=== PATIENT | female | born 1950 | race African-American/Black ===

== ENCOUNTER 2021-07-15 14:25 | Emergency (ER) | payer MEDICARE ==
[2021-07-15 15:04] LABS: #Eosinphils 0.2 thou/uL (0.0-0.7); #Lymphocytes 2.7 thou/uL (1.20-3.40); #Monocytes 0.6 thou/uL (0.11-0.59); #Neutrophils 4.5 thou/uL (1.40-6.50); %Basophils 0.3 % (0.0-1.0); %Eosinophils 2.4 % (0.0-10.0); %Lymphocytes 33.8 % (21.0-51.0); %Neutrophils 56.5 % (42.0-75.0); Mean Corpuscular HGB CONC 32.8 g/dL (32.0-36.0); Mean Corpuscular Volume 88.3 fL (78.0-98.0); Mean Platelet Volume 7.5 fL (7.4-10.4); Platelet Count 302 thou/uL (130-400); RBC Distribution Width 12.7 % (11.5-14.5); Red Blood Cell (RBC) Count 4.85 mill/uL (4.20-5.40)
[2021-07-15] MEDS ORDERED: Lorazepam 2 MG/ML VIAL ONE (15:18)
[2021-07-15 15:21] LABS: ALT (SGPT) 12 U/L (8-55); AST (SGOT) 15 U/L (5-34); Albumin 4.2 g/dL (3.4-4.8); Alkaline Phosphatase 71 U/L (40-110); Anion Gap 14 mmol/L (10-20); BUN (Urea Nitrogen) 16 mg/dL (9.8-20.1); Bilirubin, Total 0.5 mg/dL (0.2-1.2); Calc. Creatinine Clearance 0 mL/min (70-130); Calcium 9.3 mg/dL (7.8-10.44); Carbon Dioxide 25 mmol/L (23-31); Chloride 105 mmol/L (98-107); Globulin 3.5 g/dL (2.4-3.5); Glucose 116 mg/dL (83-110); Lipase 50 U/L (8-78); Potassium 3.9 mmol/L (3.5-5.1); Protein, Total 7.7 g/dL (5.8-8.1); Sodium 140 mmol/L (136-145)
[2021-07-15 15:53] LABS: Bilirubin Negative (Negative); Blood, Urine 1+ (Negative); Clarity Clear (Clear); Glucose, Urine (Dipstick) Normal (Negative); Ketone, Urine Negative (Negative); Leukocyte 75 Leu/uL (Negative); Nitrite Negative (Negative); Protein, Urine (Dipstick) Negative (Neg-Trace); Squamous Epithelial None Seen HPF (0-3); Urobilinogen Normal mg/dL (Less than 2); WBC/HPF 0-3 HPF (0-3); pH, Urine 6.5 (5.0-9.0)
[2021-07-15 15:55] LABS: Bacteria/HPF 1+ HPF (None Seen)
[2021-07-15 15:58] LABS: Acetaminophen Less than 6.0 mcg/mL (10.0-30.0); Alcohol Less than 10 mg/dL (Less than 10); Salicylate Less than 8.0 mg/dL (15.0-30.0)
[2021-07-15 16:15] LABS: Amphetamine Not Detected (NotDetected); Barbiturates Screen Not Detected (NotDetected); Benzodiazepine Screen Not Detected (NotDetected); Cocaine Metabolite Screen Not Detected (NotDetected); Methadone Not Detected (NotDetected); Methamphetamine Not Detected (NotDetected); Opiate Screen Not Detected (NotDetected); Oxycodone Screen Not Detected (NotDetected); Phencyclidine (PCP) Not Detected (NotDetected); THC/Cannabinoid Screen Not Detected (NotDetected); Tricyclic Screen Not Detected (NotDetected)
== END 2021-07-15 16:20 | disposition home or self-care (01) ==
LOC: ERS 14:25
DX: N39.0 Urinary tract infection, site not specified (principal); I25.2 Old myocardial infarction; I50.9 Heart failure, unspecified; Z79.899 Other long term (current) drug therapy
CPT/HCPCS: 36415; 80053; 80306; 80307; 81003; 81015; 83690; 84443; 85025; 96374; J2060

== ENCOUNTER 2022-01-09 11:28 | Emergency (ER) | payer MEDICARE | END 2022-01-09 12:45 | disposition home or self-care (01) | LOC: ERS 11:28 | DX: R06.02 Shortness of breath (principal); I25.2 Old myocardial infarction; I50.9 Heart failure, unspecified | CPT/HCPCS: 71045 ==

== ENCOUNTER 2022-01-26 11:23 | Emergency (ER) | payer MEDICARE | END 2022-01-26 12:18 | disposition home or self-care (01) | LOC: ERS 11:23 | DX: R06.02 Shortness of breath (principal); Z02.89 Encounter for other administrative examinations; I25.2 Old myocardial infarction; I50.9 Heart failure, unspecified | CPT/HCPCS: 99284 ==